=== PATIENT | male | born 1985 | race Caucasian/White ===

== ENCOUNTER → 2021-02-08 08:31 | Outpatient (CLI) | payer BC, SELFPAY ==
--- NOTE | ~2021-02-08 | MR_ITS ---
EXAMINATION: MR shoulder LT wo con DATE: 02/08/2021 09:12 INDICATION: Chronic anterior left shoulder pain TECHNIQUE: Magnetic resonance imaging (MRI) of the left shoulder was performed without intravenous co ntrast. Sequences included axial PD-weighted FS FSE, coronal oblique PD-weighted FS FSE, coronal obli que T2-weighted FS FSE, sagittal PD-weighted FS FSE, and sagittal T1-weighted SE. COMPARISON: None. FINDINGS: Coracoacromial arch: The acromion undersurface is curved in morphology (type II). The coracoacromial ligament is normal. M oderate acromioclavicular arthrosis with subarticular cystic change at both sides of the joint space. Rotator cuff: The supraspinatus, infraspinatus and teres minor tendons are normal. The subscapularis tendon is norm al. Normal rotator cuff muscle bulk and signal. Biceps tendon, glenoid labrum and glenohumeral cartilage: Long head of the biceps tendon is normal. Small partial-thickness tear at the 8:00 position of the po sterior inferior glenoid labrum. Glenohumeral cartilage is normal. Fluid: Physiologic amount of fluid in the glenohumeral joint and biceps tendon sheath. No loose osteochondra l bodies. Mild increased fluid signal in the subacromial/subdeltoid bursa consistent with minimal bur sitis. Bones: Aside from the subarticular edema at the acromioclavicular joint there is normal marrow signal with n o fracture or pathologic marrow replacing process. IMPRESSION: 1. Moderate acromioclavicular arthrosis. 2. Small partial-thickness tear at the posterior inferior glenoid labrum. 3. Minimal subacromial/subdeltoid bursitis. Reviewed, dictated and finalized at location A.
== END ==
PROVIDERS: Visit Provider Orthopaedic Surgery
DX: M25.512 Pain in left shoulder (principal); G89.29 Other chronic pain; M19.012 Primary osteoarthritis, left shoulder; S43.492A Other sprain of left shoulder joint, initial encounter; M75.52 Bursitis of left shoulder
CPT/HCPCS: 73221

== ENCOUNTER 2021-04-10 14:10 | Outpatient (CLI) | payer BC, SELFPAY ==
--- NOTE | 2021-04-10 14:16 | ECG_ITS ---
Measurements Intervals [place] Rate: 96 P: 39 CO: 141 QRS: 24 QRSD: 104 T: 10 QT: 342 QTc: 434 Interpretive Statements SINUS RHYTHM CONSIDER INFERIOR INFARCT, AGE INDETERMINATE ABNORMAL ECG Electronically Signed On 04-10-2021 14:43:26 CDT by Leonard Ruano D.O.
== END 2021-04-10 14:11 | disposition home or self-care (01) ==
LOC: ANHSURGERY 14:15
PROVIDERS: PCP Physician Assistant; Visit Provider Orthopaedic Surgery
DX: Z01.810 Encounter for preprocedural cardiovascular examination (principal); Z86.79 Personal history of other diseases of the circulatory system; R94.31 Abnormal electrocardiogram [ECG] [EKG]
CPT/HCPCS: 93005

== ENCOUNTER 2021-04-14 01:19 | Day surgery (SDC) | payer BC, SELFPAY ==
[2021-04-04 09:59] VITALS: BMI 35.9
[2021-04-14] VITALS (11 sets, daily range): BP systolic 123–162; BP diastolic 81–100; PULSE 91–102; RESP 14–18; TEMP 36.2–36.3; O2SAT 91–98
--- NOTE | 2021-04-14 06:46 | WPDANESEPPF ---
Anes - Initial Pre Proc Eval Procedure: Operation Date: 04/14/21 07:30 Proposed Procedures p Left Shoulder Distal Clavicle Excision, Acromioplasty - Scar Sharp MD Date/Time: 04/14/21 06:46 Surgeon: Scar Sharp MD Pre Op Diagnosis: left AC arthritis impingement Patient Data Age: 35 Gender: M Height: 1.73 m Weight: 107 kg Allergies Allergy/AdvReac Type Severity Reaction Status Date / Time pcn Allergy Mild HIVES, Uncoded 04/04/21 09:54 FEVER Home Medications Medication Instructions Recorded Confirmed Type bupropion HCl 150 mg 24 hr tablet, 150 mg PO QAM 11/27/20 04/04/21 History extended release bupropion HCl 300 mg 24 hr tablet, 300 mg PO QAM 11/27/20 04/04/21 History extended release dextroamphetamine-amphetamine 30 30 mg PO QAM 11/27/20 04/04/21 History mg tablet vilazodone 40 mg tablet 40 mg PO QAM 11/27/20 04/04/21 History ergocalciferol (vitamin D2) 1,250 mcg PO WEEKLY 04/04/21 04/04/21 History lorazepam 1 mg PO TID PRN 04/04/21 04/04/21 History multivitamin [Daily Multiple] 1 tablet PO DAILY 04/04/21 04/04/21 History Patient hx anesthesia problems: none Family hx anesthesia problems: none Results Review: All pre-operative results and documents have been reviewed as part of the pre-operative evaluation. 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 Informed Consent: The patient's anesthetic plan and its attendant risks and benefits were discussed with the patient/family/POA. Questions were solicited and answers provided to the satisfaction of the patient/family/POA.
[2021-04-14] MEDS: LACTATED RINGERS 1,000 ML 30 ML IV CONT ×2 (06:58→08:47)
[2021-04-14] MEDS: ACETAMINOPHEN 500 MG TABLET 1000 MG PO (07:08)
[2021-04-14] MEDS: KETOROLAC 15 MG/ML VIAL (*BKC) IV PUSH (07:08)
--- NOTE | 2021-04-14 07:12 | WPDHPUPDATE1 ---
History and Physical Update Update Date/Time: 04/14/21 07:12 History and Physical has been reviewed, including an updated exam of the patient. There are NO changes in the patient's condition. Risks, benefits, and alternatives have been discussed and questions answered. Patient agrees to proceed with procedure.
[2021-04-14] MEDS: ceFAZolin 2 GM/D5W 50 ML 2 GM/50 ML BAG IVPB (07:30)
--- NOTE | 2021-04-14 07:34 | WPDANESPNB ---
Anes - Peripheral Nerve Block Date/Time: 04/14/21 07:34 I have discussed with the patient/family/POA the placement of a peripheral nerve block for post-operative pain management, including associated risks, benefits, complications, and side effects. Alternative methods of post-operative analgesia were detailed. Questions were solicited and answers provided to the satisfaction of the patient/family/POA. Time-Out: A pre-procedural Time-Out was completed immediately before starting the procedure and confirmed: Patient Identification, Site, Procedure, Patient Position and the Availability of Requisite Equipment. Clinical Indications: Acute post-operative pain management requested by the operative surgeon. Nerve Block Insertion Note Anes-nerve block: interscalene left Needle: 22 gauge, stimulating, insulated echogenic needle. Needle length: 50 mm Technique: nerve stimulation lost at (mA) (0.3) and ultrasound Injectate: bupivacaine 0.5% with epi 5 mcg/ml (30ml no epi) and dexamethasone (mg) (4) Observations: tolerated well Complications: none Procedure start time:: 720 Procedure end time:: 728
[2021-04-14] MEDS: BUPIVACAINE/EPINEPHRINE 0.25% 50 ML VIAL 30 ML INFILTRATE (08:01)
--- NOTE | 2021-04-14 08:53 | W.PM.PROC2 ---
Procedure Note - Detailed Date of Procedure 04/14/21 Pre-op Diagnosis left AC arthritis, outlet impingement Post-op Diagnosis same Procedure Performed left shoulder acromioplasty with distal clavicle excision and debridement of the rotator cuff Surgeon Scar Sharp MD [employer] Agent Apolonia Mccarthy Anesthesia general and regional Description of Procedure Patient was identified and proper site identified. In the preop holding area the anesthesia team performed a left upper extremity block. He was then taken to the operating room and transferred to the or table taking care to pad the torso and extremities. After general anesthetic induction and intubation, he was put in a semi beach chair position in the usual manner for a left shoulder procedure. His head was secured taking care to neither rotate nor extend the head and neck. The left upper extremity was prepped and draped free in usual sterile fashion. The subcutaneous tissue in the area of the incision was injected with 10 cc of 0.25% Marcaine and epinephrine solution. An oblique anterior incision was made extending from the AC joint distally in line with the fibers of the deltoid. Subcutaneous tissue was sharply dissected down to the deltoid fascia. The deltoid was dissected off the anterior portion of the acromion in the distal end of the clavicle. A 2 cm split was made at the junction between the anterior and middle thirds of the deltoid. Using the microsagittal saw the last 8 mm of clavicle removed. The saw was also used to perform the acromioplasty and then the undersurface of the acromion was rasped smooth. there was an abundance of thickened inflamed bursa overlying the rotator cuff. This was sharply debrided along for complete inspection of the cuff. There was hyperemia along the supraspinatus at its attachment site but no tearing noted. Remainder of the rotator cuff was unremarkable. The wound was irrigated with sterile NaCl solution. The deltoid was repaired back to the acromion with 2. Ethibond suture passed through bone and the remainder of the deltoid repair carried out with 2. Vicryl. Subcutaneous tissue was reapproximated with 2-0 Strata fix and then tissue adhesive used for the skin. Sterile dressing was applied. There were no known intraoperative complications, and perioperative antibiotics were administered. Estimated Blood Loss 20 Drains No Packing No Pathology none sent Complications No immediate complications Condition stable Disposition PACU
== END 2021-04-14 11:15 | disposition home or self-care (01) ==
PROVIDERS: PCP Physician Assistant; Visit Provider Orthopaedic Surgery
PROC: (CPT 23420; principal; 2021-04-14 07:30)
DX: M19.012 Primary osteoarthritis, left shoulder (principal); M75.42 Impingement syndrome of left shoulder; G89.18 Other acute postprocedural pain; I48.91 Unspecified atrial fibrillation; G47.33 Obstructive sleep apnea (adult) (pediatric); F41.8 Other specified anxiety disorders; E66.9 Obesity, unspecified; Z68.36 Body mass index [BMI] 36.0-36.9, adult
CPT/HCPCS: 23120; 23130; 64415; A4565; A9270; J0690; J1100; J1170; J1885; J2250; J3010; J7120

== ENCOUNTER 2022-11-07 14:03 | Emergency (ER) | payer OTHER, BC, SELFPAY ==
--- NOTE | ~2022-11-07 | XR_ITS ---
EXAM: XR hand RT min 3V DATE: 11/07/2022 14:37 HISTORY: hit hand on truck while trying to get bolt loose . COMPARISON: None available. FINDINGS: Normal mineralization. No fracture or dislocation. No lytic or blastic lesion. Joint space s are maintained. No erosion or periosteal change. 1 mm punctate radiopacity projecting over the dors al soft tissues overlying the medial edge of the second metatarsal at the junction of the mid and dis michelle third. IMPRESSION: No acute osseous finding in the right hand. Possible punctate dorsal soft tissue foreign body. Reviewed, dictated and finalized at location K. IMPRESSION: No acute osseous finding in the right hand. Possible punctate dorsa l soft tissue foreign body.
--- NOTE | 2022-11-07 14:19 | ED.UPPEXIN ---
HPI - Extremity Injury (Upper) General Chief Complaint: Extremity Injury, Upper Stated Complaint: INJURED R HAND Time Seen by Provider: 11/07/22 14:19 Source: patient Mode of arrival: ambulatory Limitations: no limitations History of Present Illness HPI narrative: Mr. Alves is a 36-year-old male patient presenting to the clinic today with complaints of right hand pain/injury. He reports he hit his hand on a piece of metal when he was breaking a bolt loose yesterday. Hand is swollen and painful. Pain is radiating into the wrist Related Data Home Medications Medication Instructions Recorded Confirmed bupropion HCl 150 mg 24 hr tablet, 150 mg PO QAM 11/27/20 05/27/21 extended release (Wellbutrin XL) bupropion HCl 300 mg 24 hr tablet, 300 mg PO QAM 11/27/20 05/27/21 extended release (Wellbutrin XL) dextroamphetamine-amphetamine 30 30 mg PO QAM 11/27/20 05/27/21 mg tablet (Adderall) vilazodone 40 mg tablet (Viibryd) 40 mg PO QAM 11/27/20 05/27/21 ergocalciferol (vitamin D2) 1,250 1,250 mcg PO WEEKLY 04/04/21 05/27/21 mcg (50,000 unit) capsule lorazepam 1 mg tablet 1 mg PO TID PRN Anxiety 04/04/21 05/27/21 multivitamin 1 tablet PO DAILY 04/04/21 05/27/21 lamotrigine 25 mg tablet mg 11/07/22 metoprolol succinate 25 mg mg PO 11/07/22 tablet,extended release 24 hr pantoprazole 40 mg tablet,delayed mg PO 11/07/22 release Allergies Allergy/AdvReac Type Severity Reaction Status Date / Time Penicillins Allergy Unknown Hives, Verified 11/07/22 14:27 fever Review of Systems Review of Systems: Pertinent positives per HPI. Patient denies any fever, chills, rash, headache, visual changes, dizziness, cough, runny nose, sore throat, shortness of breath, chest pain, palpitations, nausea, vomiting, diarrhea, constipation, abdominal pain, or any urinary issues. PMFSH Past Medical History Medical History Afib Anxiety Depression Hx of migraines ERLIN (obstructive sleep apnea) Surgical History Surgical History Arthritis of left acromioclavicular joint acromioplasty with distal clavicle excision April 14, 2021 H/O cardiac radiofrequency ablation 2019 H/O foot surgery 2008 Previous back surgery 2010 Social History Social History Smoking status: Never smoker Alcohol intake: never Alcohol use details: QUIT 07/2020 HEAVY DRINKER IN PAST Substance use: never Living arrangements: with family Additional living arrangements comments: SPOUSE AND 6 CHILDREN Occupation/Education: occupation 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 There is no relevant family history pertinent to the patient complaint. Exam Narrative: General: Well-developed, well nourished, in no apparent distress Head: Normocephalic, atraumatic. Cardio: Regular rate and rhythm, s1 and s2 normal, no murmur appreciated. Resp: Clear to auscultation bilaterally, no rhonchi, rales, wheezing or rubs. Musculoskeletal: No deformity, tender to palpation over the dorsal hand of the 2nd and 3rd metacarpals, localized swelling noted, grossly normal range of motion, muscle strength strong and equal, peripheral pulse strong, no edema, no cyanosis, normal gait and station Course Course Emergency Course: Portions of this record may have been created with voice recognition software. Level of Care: Express Care Visit Vital Signs Vital signs: Vital Signs Temperature 36.2 C L 11/07/22 14:21 Pulse Rate 85 11/07/22 14:21 Respiratory Rate 16 11/07/22 14:21 Blood Pressure 140/90 11/07/22 14:21 Pulse Oximetry 100
[2022-11-07 14:21] VITALS: BP 140/90; PULSE 85; RESP 16; TEMP 36.2; O2SAT 100
== END 2022-11-07 14:58 | disposition home or self-care (01) ==
PROVIDERS: Emergency Provider Nurse Practitioner Family
DX: S60.221A Contusion of right hand, initial encounter (principal); W22.8XXA Striking against or struck by other objects, initial encounter; I48.91 Unspecified atrial fibrillation; F41.9 Anxiety disorder, unspecified; F32.A Depression, unspecified
CPT/HCPCS: 73130; 99213; G0463